=== PATIENT | male | born 1985 | race Caucasian/White ===

== ENCOUNTER 2018-10-10 14:03 | Emergency (ER) | payer OTHER ==
[2018-10-10 14:16] VITALS: BP 141/90
--- NOTE | 2018-10-10 14:26 | ED Physician Documentation ---
Abscess - HISTORIAN Historian: patient - HPI Stated Complaint: abscess to R side of face Chief Complaint: Abscess (Face) Additional Information: Patient is a 33-year-old male who presents to the ER with c/o an infected area to the right side of his face. He states that he noticed some irritation to his face 3 days ago and then yesterday the area was really sore. Patient states that it feels like the size of a baseball. Area is approximately 3cm in circumference- and appears to be and ingrown hair (from his rosa) that has become infected- it is scabbed over- patient admits to picking at it and had some "gunk" come out of it. He denies any dental pain. Onset: days ago Timing: still present Duration: lasting Location: facial Quality: painful ("uncomfortable") Identified Cause?: Yes (possible ingrown hair from his rosa) When Did Symptoms Start: 10/08/18 Where: home Context: Medication Exposure: none Context: Food Exposure: none Context: Other Exposure: denies: infectious illness Further Comments: no - ROS CONST: none CVS/RESP: none EYES/ENT: none GI/: none MS/SKIN/LYMPH: none NEURO/PSYCH: anxiety - PAST HX Past History: other (depression, anxiety, ADHD) Other History: none Surgeries/Procedures: No Immunizations: UTD Allergies/Adverse Reactions: Allergies Allergy/AdvReac Type Severity Reaction Status Date / Time No Known Allergies Allergy Verified 10/10/18 14:20 Home Medications: Ambulatory Orders Medication Instructions Recorded Alprazolam [Xanax] 0.5 mg PO DAILY 10/10/18 Clindamycin HCl [Cleocin] 300 mg PO Q6 #40 capsule 10/10/18 DULoxetine HCL [Cymbalta] 20 mg PO DAILY 10/10/18 Dextroamphetamine/Amphetamine 10 mg PO BID 10/10/18 [Adderall 10 mg Tablet] - SOCIAL HX Smoking History: non-smoker Alcohol Use: none Drug Use: none - FAMILY HX Family History: none - VITAL SIGNS Vital Signs: Vital Signs Temp Pulse Resp BP Pulse Ox 98.6 F 89 16 141/90 99 10/10/18 14:09 10/10/18 14:32 10/10/18 14:32 10/10/18 14:32 10/10/18 14:32 - REVIEWED ASSESSMENTS Nursing Assessment Reviewed: Yes Vitals Reviewed: Yes Abscess Physical Exam - EXAM General Appearance: alert, mild distress, anxious Skin: warm,dry, abscess (right cheek) Location: face Character: symmetric (circular) Symptoms: tenderness, swelling, inflammation. No: warmth Extremities: non-tender, nml ROM EENT: eyes nml inspection, lips nml, gums nml, pharynx nml Neck: trachea midline Respiratory: breath sounds normal CVS: heart sounds nml Neuro/Psych: oriented x3, CN's nml as tested, motor nml, sensation nml, mood/affect nml Discharge Clincal Impression: Abscess of face Prescriptions: Clindamycin HCl [Cleocin] 300 mg PO Q6 #40 capsule Referrals: Primary Doctor,No [Primary Care Provider] - 2 Days Additional Instructions: Take antibiotic as directed until gone Warm moist heat to affected area Do not shave rosa or pick at area Good handwashing Follow up with PCP when you get home Condition: Good Disposition: 01 HOME, SELF-CARE Decision to Admit: NO Decision Time: 14:32
== END 2018-10-10 14:30 | disposition home or self-care (01) ==
LOC: ED 14:03
DX: L02.01 Cutaneous abscess of face (principal)
CPT/HCPCS: 99282; 99283